=== PATIENT | female | born 1940 | race Caucasian/White ===

== ENCOUNTER → 2017-01-16 16:56 | Outpatient (CLI) | payer MEDICARE, BC ==
[2014-10-14 06:18] VITALS: BMI 28.9
[~2017-01-16 16:56] MED LIST: ASPIRIN 81 MG E81 MG PO; CALTRATE-600600 MG PO; CENTRUM SILVER1 TA2 PO; GEMFIBROZIL600 MG PO; GLUCOPHAGE1000 MG PO; GLUCOPHAGE500 MG PO; GLUCOTROL 5 MG T5 MG PO; IMODIUM2 MG PO; LISINOPRIL10 MG PO; PRAVACHOL40 MG PO; PRAVACHOL80 MG PO; PRILOSEC20 MG PO; TRUSOPT 2 % OPT10 ML EACH EYE; TUMS500 MG PO; VITAMIN D2000 UNIT PO; XALATAN 0.0052.5 ML EACH EYE; ZANTAC150 MG PO; ZETIA10 MG PO
== END | disposition home or self-care (01) ==
LOC: D.MAMMO 12-14 14:45
DX: Z12.31 Encounter for screening mammogram for malignant neoplasm of breast (principal)

== ENCOUNTER → 2018-09-13 09:17 | Outpatient (CLI) | payer MEDICARE, BC ==
[2014-10-14 06:18] VITALS: BMI 28.9
--- NOTE | 2018-09-18 13:26 | EC ---
PATIENT:INGRID TRIPP DATE OF SERVICE: 09/13/18 SEX: F MEDICAL RECORD: [id number] DATE OF : [birth year] LOCATION:[facility] AGE OF PATIENT: 77 ADMISSION DATE: 09/13/18 REFERRING PHYSICIAN: INTERPRETING PHYSICIAN: FARRAH SKAGGS MD ECHOCARDIOGRAM REPORT ECHO CHARGES 4 ECHO COMPLETE Date: 09/13/18 CLINICAL DIAGNOSIS: CAD/MR/TR ECHOCARDIOGRAPHIC MEASUREMENTS (adult normal given) AC root (d.<3.7cm) 3.0 cm LV Septum d (<1.2 cm> 1.3 cm Valve Excursion 1.0 cm LV Septum (systole) 1.8 cm Left Atria (s.<4.0cm> 4.2 cm LVPW d(<1.2cm) 1.6 cm RV (d.<2.3cm) 4.0 cm LVPW (sytole) 1.9 cm LV diastole(<5.6CM) 5.1 cm MV E-F(>70mm/sec) cm LV systole 3.4 cm LVOT Diameter 1.7 cm MV exc.(>10mm) 1.5 cm Est.ejection fraction (50-75%) % DOPPLER: LVIT cm/sec A 117 cm/sec E 86.0 cm/sec LA cm/sec RVSP 42 mmHg LVOT 115 cm/sec AOP1/2T m/s Asc. Ao 203 cm/sec RVOT 82 cm/sec RA cm/sec PA 149 cm/sec AV Gradient Peak 16.52mmHg AV Mean 9.98 mmHg AV Area 1.5 cm MV Gradient Peak 7.58 mmHg MV Mean 2.80 mmHg MV Area cm COMMENTS: Historic Site Administrator: 2 MUNA CHANG Health Professor: 3 Dr. Pacheco TAPE# PACS Pericardial Effusion N DATE OF SERVICE: 09/13/2018 Adequate 2-D, color-flow and spectral Doppler, and M-mode. Borderline LVH. LV internal dimensions are normal. Wall motion is normal. EF is 55%. Aortic valve is tricuspid. No evidence of stenosis by Doppler interrogation. Left atrium is minimally dilated at 4.2 cm. Mitral valve shows no prolapse. Mild MR. Right-sided chambers are grossly normal. Mild TR. TRANSINT:[id number] Voice Confirmation ID: [id number] DOCUMENT ID: [id number] ECHOCARDIOGRAM REPORT [id number] INGRID TRIPP,FARRAH West MD at 1326 CC: [id number] DICTATION DATE: 09/13/18 1305 NEPHROLOGY SOCIAL WORKER: 09/13/18 1438 DEP CLI 09/13/18 [place] [id number] [place] [id number]
== END | disposition home or self-care (01) ==
LOC: D.HCCARDIO 09:17
PROVIDERS: ATTEND Internal Medicine Interventional Cardiology
DX: I25.10 Atherosclerotic heart disease of native coronary artery without angina pectoris (principal)

== ENCOUNTER 2019-01-31 10:00 | Outpatient (CLI) | payer MEDICARE, BC ==
[2014-10-14 06:18] VITALS: BMI 28.9
== END 2019-01-31 11:00 | disposition home or self-care (01) ==
LOC: D.MAMMO 10:00
PROVIDERS: ATTEND Family Medicine
DX: Z12.31 Encounter for screening mammogram for malignant neoplasm of breast (principal)

== ENCOUNTER 2019-02-28 09:00 | Outpatient (CLI) | payer MEDICARE, BC ==
[2014-10-14 06:18] VITALS: BMI 28.9
== END 2019-02-28 10:00 | disposition home or self-care (01) ==
LOC: D.MAMMO 09:00
PROVIDERS: ATTEND Family Medicine
DX: R92.2 Inconclusive mammogram (principal)

== ENCOUNTER → 2019-10-01 08:20 | Outpatient (CLI) | payer MEDICARE, BC ==
[2014-10-14 06:18] VITALS: BMI 28.9
--- NOTE | 2019-10-02 09:31 | EC ---
PATIENT:INGRID TRIPP DATE OF SERVICE: 10/01/19 SEX: F MEDICAL RECORD: [id number] DATE OF : [birth year] [facility]GE [facility]: 78 ADMISSION DATE: 10/01/19 REFERRING PHYSICIAN: INTERPRETING PHYSICIAN: FARRAH SKAGGS MD ECHOCARDIOGRAM REPORT ECHO CHARGES 4 ECHO COMPLETE Date: 10/01/19 CLINICAL DIAGNOSIS: CAD/MR/TR ECHOCARDIOGRAPHIC MEASUREMENTS (adult normal given) AC root (d.<3.7cm) 3.2 cm LV Septum d (<1.2 cm> 1.7 cm Valve Excursion 1.2 cm LV Septum (systole) 1.8 cm Left Atria (s.<4.0cm> 3.4 cm LVPW d(<1.2cm) 1.6 cm RV (d.<2.3cm) 3.6 cm LVPW (sytole) 2.2 cm LV diastole(<5.6CM) 4.7 cm MV E-F(>70mm/sec) cm LV systole 2.7 cm LVOT Diameter 1.4 cm MV exc.(>10mm) 1.1 cm Est.ejection fraction (50-75%) % DOPPLER: LVIT cm/sec A 114.0cm/sec E 91.0 cm/sec LA cm/sec RVSP 44 mmHg LVOT 151 cm/sec AOP1/2T m/s Asc. Ao 235 cm/sec RVOT 94 cm/sec RA cm/sec PA 134 cm/sec AV Gradient Peak 22.0 mmHg AV Mean 13.07mmHg AV Area 1.4 cm MV Gradient Peak 5.27 mmHg MV Mean 1.98 mmHg MV Area cm COMMENTS: Fishing Worker: 2 MUNA CHANG Bulk Station Operator: 3 Dr. Pacheco TAPE# PACS Pericardial Effusion N DATE OF SERVICE: 10/01/2019 Adequate 2D, color flow imaging, spectral Doppler, and M-Mode. LVH is present. LV internal dimension is normal. Wall motion is normal. EF greater than or equal to 55%. Aortic valve is calcified with restriction of leaflet motion. Peak gradient of 22 mmHg putting this in mild early range. Left atrium is normal at 3.4 cm. Mitral valve shows no prolapse. Mild MR. Right-sided chambers are grossly normal. Mild plus TR. ECHOCARDIOGRAM REPORT [id number] INRGID TRIPP TRANSINT:[id number] Voice Confirmation ID: [id number] DOCUMENT ID: [id number] FARRAH SKAGGS MD at 0931 CC: [id number] DICTATION DATE: 10/01/19 1527 PATIENT TRANSPORT OFFICER: 10/02/19 0143 DEP CLI 10/01/19 [place] [id number] [place] [id number]
== END | disposition home or self-care (01) ==
LOC: D.HCCECHO 08:20
PROVIDERS: ATTEND Internal Medicine Interventional Cardiology
DX: I25.10 Atherosclerotic heart disease of native coronary artery without angina pectoris (principal)

== ENCOUNTER → 2020-09-29 10:25 | Outpatient (CLI) | payer MEDICARE, BC ==
[2014-10-14 06:18] VITALS: BMI 28.9
--- NOTE | ~2020-09-29 | EC ---
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 Ao 221 cm/sec RVOT cm/sec RA cm/sec PA 123 cm/sec AV Gradient Peak 19.52mmHg AV Mean 10.64mmHg AV Area 1.4 cm MV Gradient Peak 5.64 mmHg MV Mean 1.92 mmHg MV Area cm COMMENTS: Padding Machine Operator: 2 MUNA CHANG Psychiatric Rn: 3 Dr. Pacheco TAPE# PACS Pericardial Effusion N DATE OF SERVICE: Adequate 2D, color flow imaging, spectral Doppler, and M-Mode. Mild LVH. LV internal dimensions are normal. Wall motion normal. EF greater than or equal to 55%. Aortic valve is calcified with minimal restriction of leaflet motion. Peak gradient of 19 mmHg putting this in mild range. Left atrium appears dilated at 5.0 cm. Mitral valve shows no prolapse. Mild MR. Right-sided chambers are grossly normal. Mild TR. ECHOCARDIOGRAM REPORT [id number] INGRID TRIPP TRANSINT:[id number] Voice Confirmation ID: [id number] DOCUMENT ID: [id number] FARRAH SKAGGS MD CC: [id number] DICTATION DATE: 09/29/20 145 FEED HANDLER: 09/30/20 0015 DEP CLI 09/29/20 [place] [id number] [place] [address]
== END | disposition home or self-care (01) ==
LOC: D.HCCECHO 10:25
PROVIDERS: ATTEND Internal Medicine Interventional Cardiology
DX: I10 Essential (primary) hypertension (principal)